=== PATIENT | female | born 1970 | race Caucasian/White ===

== ENCOUNTER 2017-01-28 15:32 | Emergency (ER) | payer BC ==
[~2017-01-28 15:32] MED LIST: BACLOFEN10 MG PO; BACTRIM DS TABL1 TAB PO; COREG; CORGARD40 MG PO; CYMBALTA PO; FLEXERIL PO; IBUPROFEN; LASIX PO; LASIX20 MG PO; LEVAQUIN PO; LYRICA PO; MEDROL PO; METFORMIN PO; NABUMETONE PO; NEURONTIN; NEURONTIN300 MG PO; PEN-VEE K PO; PERCOCET; PERCOCET 10/3251 TAB PO; PREMARIN; QUINAM; REGLAN PO; ULTRAM PO; VICODIN 5/500 T1 TAB PO; [UNRECOGNIZED DRUG - OTHER] TOP
[2017-01-28] MEDS ORDERED: KDUR PO (15:41)
[2017-01-28] MEDS ORDERED: PERCOCET 10MG PO (15:41)
[2017-01-28] MEDS ORDERED: MAGNESIUM PO (15:41)
[2017-01-28] MEDS ORDERED: OXCARBAZEPINE PO (15:42)
[2017-01-28] MEDS ORDERED: NADOLOL PO (15:42)
[2017-01-28] MEDS ORDERED: PREDNISONE PO (15:42)
[2017-01-28] MEDS ORDERED: TRAZODONE PO (15:43)
[2017-01-28] MEDS ORDERED: ATORVASTATIN PO (15:43)
[2017-01-28] MEDS ORDERED: METFORMIN PO (15:44)
[2017-01-28 17:25] LABS: BASOPHIL# 0.1 X10e3 (0-0.3); BASOPHIL% 0.6 % (0-2.5); EOSINOPHIL% 0.2 % (0.0-7.0); HEMOGLOBIN 13.8 gm/dL (12.0-16.0); LYMPHOCYTE# 1.2 X10e3 (1.0-3.5); LYMPHOCYTE% 11.7 % (17.0-45.0); MEAN CORPUSCULAR HEMOGLOBIN 32.4 PG (28-34); MEAN CORPUSCULAR HGB CONC 33.8 g/dL (30-36); MEAN PLATELET VOLUME 7.5 FL (6.5-11.5); MONOCYTE# 0.4 X10e3 (0-1.0); MONOCYTE% 3.9 % (3.0-12.0); NEUTROPHIL# 8.9 X10e3 (1.5-7.1); NEUTROPHIL% 83.6 % (40-75); PLATELET COUNT 300 X10e3 (140-420); RED BLOOD COUNT 4.27 X10e (3.90-5.30); RED CELL DISTRIBUTION WIDTH 14.6 % (11.0-15.5); WHITE BLOOD COUNT 10.6 X10e3 (4.0-10.5)
[2017-01-28 17:34] LABS: DIFF IND NO
[2017-01-28 17:38] LABS: ALKALINE PHOSPHATASE 63 U/L (32-92); ALT (SGPT) 50 U/L (10-40); AST (SGOT) 47 U/L (10-42); BILIRUBIN, DIRECT <0.1 mg/dL (0.0-0.2); BILIRUBIN,INDIRECT 0.3 mg/dL (0.0-0.9); BILIRUBIN,TOTAL 0.4 mg/dL (0.2-2.0); BLOOD UREA NITROGEN 20 mg/dL (9-23); BUN/CREATININE RATIO 28.57; CALCIUM SERUM 8.9 mg/dL (8.4-10.2); CARBON DIOXIDE 24 mmol/L (22-31); CHLORIDE 97 mmol/L (100-111); CREATININE SERUM 0.7 mg/dL (0.6-1.4); GLOM FILT RATE Estimated 103.2 mL/min (>60); GLUCOSE FASTING 246 mg/dL (70-110); POTASSIUM 4.3 mmol/L (3.5-5.1); PROTEIN TOTAL SERUM 7.3 g/dL (6.0-8.3); SODIUM 132 mmol/L (135-145)
[2017-01-28 18:21] LABS: URINE SOURCE CLEAN CATCH
[2017-01-28 18:23] LABS: MICRO INDICATED? NO; URINE APPEARANCE CLEAR; URINE BILIRUBIN NEG (NEG); URINE BLOOD NEG (NEG); URINE COLOR YELLOW; URINE GLUCOSE 100 MG/DL (NORM); URINE KETONE 1+ (NEG); URINE LEUKOCYTE ESTERASE NEG (NEG); URINE NITRATE NEG (NEG); URINE PROTEIN NEG (NEG); URINE SPECIFIC GRAVITY 1.025 (1.003-1.035); URINE UROBILINOGEN 0.2 MG/DL (NORM)
== END 2017-01-28 19:13 | disposition home or self-care (01) ==
LOC: SED 15:32
PROVIDERS: Emergency Medicine
DX: R60.0 Localized edema (principal); M79.662 Pain in left lower leg; M79.661 Pain in right lower leg
CPT/HCPCS: 36415; 80048; 80076; 81003; 85025; 99283